=== PATIENT | male | born 1970 | race Caucasian/White ===

== ENCOUNTER 2021-01-25 16:02 | Inpatient (IN) | payer BC, SELFPAY ==
[2021-01-25] VITALS (10 sets, daily range): BP systolic 106–136; BP diastolic 62–88; PULSE 78–115; RESP 18–26; TEMP 37.1–38.1; O2SAT 89–98; BMI 14.3; BMI 42.0; BMI 41.1
--- NOTE | 2021-01-25 16:43 | XR_ITS ---
PROCEDURE INFORMATION: Exam: XR Chest Exam date and time: 01/25/2021 4:43 PM Age: 50 years old Clinical indication: Shortness of breath and other: Hypoxia; Patient HX: Non-smoker TECHNIQUE: Imaging protocol: XR of the chest. Views: 1 view. COMPARISON: No relevant prior studies available. FINDINGS: Lungs: Patchy bilateral airspace disease is primarily over the bases. Pleural spaces: Unremarkable. No pleural effusion. No pneumothorax. Heart/Mediastinum: Unremarkable. No cardiomegaly. Bones/joints: Unremarkable. IMPRESSION: Findings compatible with multifocal pneumonia
--- NOTE | 2021-01-25 16:44 | HMH.EDGENADL ---
ED Disposition Clinical Impression: Acute respiratory failure with hypoxia, COVID-19, Pneumonia due to COVID-19 virus Disposition: Admitted As Inpatient Condition on Discharge: Good Time of Disposition: 18:27 - Critical Care Critical Care Time: Yes Attestation: On 01/25/21, the high probability of a clinically significant, sudden or life threatening deterioration of the following system(s) required my full and direct attention, intervention and personal management. The time I documented below is in addition to time spent performing reported procedures but includes the following listed in this critical care notation. Total Critical Care Time: 35 Vital system(s) involved:: Respiratory Failure My critical care processes included: Assessment & monitoring of V/S, Initial and Re-exams, Data Review/Interpretation, Coordinating Care, Medication Orders and management, Documentation Medical Decision Making - Medical Records Medical records reviewed: Yes: I reviewed the patient's medical records. - Gilbert Inquiry Pt receiving controlled substance: No Vital Signs: 01/25/21 16:03 01/25/21 16:04 01/25/21 16:15 Temperature 100.3 F H Temperature Source Oral Pulse Rate [Left Radial] 112 H Respiratory Rate 18 Blood Pressure [Right Arm] 124/76 Blood Pressure Mean [Right Arm] 92 Blood Pressure Source [Right Arm] Automatic Cuff Blood Pressure Position [Right Arm] Sitting 02 Sat by Pulse Oximetry 89 L 90 L 96 Oxygen Delivery Method Room Air Nasal Cannula Vapotherm Oxygen Flow Rate (LPM) 6 - Lab Data Lab results reviewed: Yes: I reviewed the patient's lab results. Lab Results 01/25/21 16:48: Specimen Source Left radial, O2 % 6l nc, ABG pH 7.51 H, ABG pCO2 30.2 L, ABG pO2 62.0 L, ABG HCO3 23.5, ABG Total CO2 24.4, ABG O2 Saturation 93, ABG Base Excess 0.4, Raj Test Acceptable 01/25/21 17:00: WBC 8.2, RBC 5.97, Hgb 17.6, Hct 51.9, MCV 86.9, MCH 29.5, MCHC 34.0, RDW 14.1, Plt Count 218, MPV 9.1, Neut % (Auto) 79.4, Lymph % (Auto) 14.7, Stark % (Auto) 4.7, Eos % (Auto) 0.1, Baso % (Auto) 1.1, Neut # (Auto) 6.5, Lymph # (Auto) 1.2, Stark # (Auto) 0.4, Eos # (Auto) 0.0, Baso # (Auto) 0.1 01/25/21 17:00: Sodium 139, Potassium 4.7, Chloride 100, Carbon Dioxide 29, Anion Gap 14.7, BUN 23 H, Creatinine 1.20, Estimated Creat Clear 85, Estimated GFR 64, Est GFR ( Amer) 77, Glucose 140 H, Calcium 8.4, Total Bilirubin 0.8, AST 119 H, ALT 64, Alkaline Phosphatase 76, Troponin I 0.01, NT-Pro-B Natriuret Pep 49.4, Total Protein 8.0, Albumin 4.1, Globulin 3.9 H, Albumin/Globulin Ratio 1.1 01/25/21 17:40: SARS-CoV-2 (PCR) Detected A, Influenza A Untype (PCR) Not detected, Influenza Type B (PCR) Not detected Result diagrams: 01/25/21 17:00 01/25/21 17:00 Orders (Tests/Meds): ORDERS Category Date Time Status Lactic Acid Stat Lab 01/25/21 17:40 Received Troponin I Q3H Lab 01/25/21 19:45 Ordered Blood Culture Stat Micro 01/25/21 17:40 Received - Radiology Data #1 Image(s): Chest Image Reviewed: Yes I reviewed the patient's radiology results Preliminary Findings: Abnormal covid pna - ECG Data Tracing #1 I reviewed this ECG and interpreted as documented below: Sinus tachycardia with fusion complexes, 116 bpm, no ST elevation or depression, normal intervals. ECG initial impression date: 01/25/21 ECG initial impression time: 17:28 Medical Decision Narrative: 50yo M evaluated for acute respiratory failure. Patient's O2 saturations were in the low 80s upon arrival to the emergency department. He was started on supplemental O2 but only improved to the mid 80s. Patient was then started on Vapotherm at 100% FiO2 and his O2 sats are 97 to 98%. His work of breathing has returned to normal. He denies any symptoms right now other than his shortness of breath. He denies taking any daily medications or chronic health issues. Laboratory studies are largely unremarkable. Chest x-ray concerning for Covid pneumoni
--- NOTE | 2021-01-25 17:24 | ECG_ITS ---
APPROVED REPORT Exam: Resting ECG HR:116 bpm ECG Measurements Heart Rate 116 AXES IA 166 P 25 QRSd 92 QRS 67 QT 322 T -7 QTc 447 Conclusion Sinus tachycardia with fusion complexes T wave abnormality, consider inferior ischemia Abnormal ECG Electronically signed by : Pérez Montalvo MD 01/26/2021 10:53:23
[2021-01-25 17:34] LABS: ABG Base Excess 0.4 mmol/L (-2.4-2.3); ABG HCO3 23.5 mmhg (22.0-26.0); ABG Oxygen Saturation 93 % (90-100); ABG PCO2 30.2 mmhg (35.0-45.0); ABG PH 7.51 mmol/L (7.35-7.45); ABG TCO2 24.4 mmhg (23-27)
[2021-01-25 17:38] LABS: Allen's Test Acceptable; Oxygen 6L NC %; Source Left Radial
[2021-01-25 17:39] LABS: Chloride 100 mmol/L (98-107); Potassium 4.7 mmoL/L (3.5-5.1); Sodium 139 mmol/L (136-145)
[2021-01-25 17:41] LABS: Blood Urea Nitrogen 23 mg/dl (9-20); Creatinine Clearance Estimated 85 mL/min (50-200); Estimated Glomerular Filt Rate 64 ml/min (>60); GFR (African American) 77 ML/MIN (>60)
[2021-01-25 17:42] LABS: Alanine Aminotransferase 64 U/L (12-78); Albumin Level 4.1 g/dl (3.5-5.0); Albumin/Globulin Ratio 1.1 (1.1-1.8); Alkaline Phosphatase 76 U/L (38-126); Anion Gap 14.7 mEq/L (5-15); Aspartate Amino Transferase 119 U/L (17-59); Bilirubin,Total 0.8 mg/dl (0.2-1.3); Carbon Dioxide 29 mmol/L (22.0-30.0); Globulin 3.9 g/dL (1.3-3.2)
[2021-01-25 17:43] LABS: Calcium 8.4 mg/dl (8.4-10.2); Glucose 140 mg/dl (74-100)
[2021-01-25 17:44] LABS: Basophils # 0.1 K/mm3 (0-0.2); Basophils % 1.1 % (0.1-2.0); Eosinophils % 0.1 % (0.1-12.0); Hematocrit 51.9 % (42.0-52.0); Hemoglobin 17.6 g/dL (14.1-18.0); Lymphocytes # 1.2 K/mm3 (0.7-4.5); Lymphocytes % 14.7 % (10-50); Mean Corpuscular Hemoglobin 29.5 pg (27.0-31.2); Mean Corpuscular Volume 86.9 fl (80-94); Mean Platelet Volume 9.1 fl (7.4-10.4); Monocytes # 0.4 K/mm3 (0.1-1.0); Monocytes % 4.7 % (1.7-9.3); Neutrophils # 6.5 K/mm3 (1.8-7.8); Neutrophils % 79.4 % (37.0-80.0); Platelet Count 218 K/mm3 (142-424); Red Blood Count 5.97 M/mm3 (4.60-6.20); Red Cell Distribution Width 14.1 % (11.5-17.5); White Blood Count 8.2 K/mm3 (4.8-10.8)
[2021-01-25 17:51] LABS: NT Pro Brain Natriuretic Pep. 49.4 pg/mL (0-125)
[2021-01-25 17:57] LABS: Influenza A, PCR Not Detected (NotDetected); Influenza B, PCR Not Detected (NotDetected)
[2021-01-25 18:00] LABS: Troponin I 0.01 ng/ml (0.00-0.034)
--- NOTE | 2021-01-25 18:10 | PC.NURSE ---
Speaking with about admission
[2021-01-25 18:18] LABS: Coronavirus 19, PCR Detected (NotDetected)
[2021-01-25 18:21] LABS: Lactic Acid 1.7 mmol/L (0.7-2.1)
--- NOTE | 2021-01-25 18:36 | PC.NURSE ---
CALLED HOUSE FOR BED
[2021-01-25 19:17] LABS: Procalcitonin 0.175 ng/mL (0.0-2.0)
[2021-01-25 20:17] LABS: Troponin I 0.02 ng/ml (0.00-0.034)
[2021-01-26] VITALS (12 sets, daily range): BP systolic 112–149; BP diastolic 60–88; PULSE 76–94; RESP 19–21; TEMP 36.5–38.1; O2SAT 90–97
--- NOTE | 2021-01-26 04:49 | PC.NURSE ---
He is A&Ox4. He continues on vapotherm @ 40LPM 100%FiO2. He ambulated to the bathroom and tolerated well. Productive cough with white sputum; culture sent to lab. No acute changes since admission.
--- NOTE | 2021-01-26 05:30 | PC.NURSE ---
His bed is raised per his request.
[2021-01-26 05:59] LABS: Chloride 100 mmol/L (98-107)
[2021-01-26 06:00] LABS: Potassium 4.5 mmoL/L (3.5-5.1); Sodium 139 mmol/L (136-145)
[2021-01-26 06:02] LABS: Alanine Aminotransferase 57 U/L (12-78); Alkaline Phosphatase 74 U/L (38-126); Aspartate Amino Transferase 97 U/L (17-59); Basophils # 0.1 K/mm3 (0-0.2); Basophils % 0.6 % (0.1-2.0); Bilirubin,Total 0.6 mg/dl (0.2-1.3); Blood Urea Nitrogen 24 mg/dl (9-20); Creatinine Clearance Estimated 163 mL/min (50-200); Eosinophils % 0.1 % (0.1-12.0); Estimated Glomerular Filt Rate 71 ml/min (>60); GFR (African American) 85 ML/MIN (>60); Hematocrit 49.8 % (42.0-52.0); Hemoglobin 16.3 g/dL (14.1-18.0); Lymphocytes # 1.4 K/mm3 (0.7-4.5); Lymphocytes % 16.5 % (10-50); Mean Corpuscular HGB Conc 32.8 g/dL (31.8-35.4); Mean Corpuscular Hemoglobin 28.9 pg (27.0-31.2); Mean Corpuscular Volume 88.1 fl (80-94); Mean Platelet Volume 9.3 fl (7.4-10.4); Monocytes # 0.3 K/mm3 (0.1-1.0); Monocytes % 3.8 % (1.7-9.3); Neutrophils # 6.7 K/mm3 (1.8-7.8); Platelet Count 197 K/mm3 (142-424); Red Blood Count 5.65 M/mm3 (4.60-6.20); White Blood Count 8.4 K/mm3 (4.8-10.8)
[2021-01-26 06:03] LABS: Albumin Level 3.8 g/dl (3.5-5.0); Albumin/Globulin Ratio 1.1 (1.1-1.8); Anion Gap 13.5 mEq/L (5-15); Calcium 8.3 mg/dl (8.4-10.2); Carbon Dioxide 30 mmol/L (22.0-30.0); Globulin 3.4 g/dL (1.3-3.2); Glucose 120 mg/dl (74-100); Total Protein,Serum 7.2 g/dl (6.3-8.2)
--- NOTE | 2021-01-26 06:11 | HMH.HP ---
*Admission Date: 01/25/21 *Chief complaint: Shortness of breath *History of present illness: 50-year-old male presented to the emergency department with shortness of breath with cough and O2 sats in the 80s. Patient initially came down with URI symptoms on January 16. Patient was tested few days later through his employer and tested positive for COVID-19. Patient has been quarantining at home and was monitoring with home oximetry. Patient denies shortness of breath at rest but reports with coughing spells he became dyspneic. O2 sats began to drop into the 80s and reached as low as 80%. At this point patient decided to seek treatment in the ER. In the ER patient was hypoxic and responded to application of high flow nasal cannula which is currently maxed out at 40 L/min and 100% FiO2. Patient reports he feels comfortable this morning. He has not been vaccinated against COVID-19. [facility] History I have reviewed the patient's past medical history: Yes Medical History: Reports:: Cerebrovascular Accident Denies:: Cancer, Diabetes Mellitus Type 1, Diabetes Mellitus Type 2, MRSA *Have you ever received a pneumonia vaccine?: No *Have you received a flu vaccine this season?: No Laterality Cases: Left: Arthroscopy Knee Other Surgeries: Comment Only: Other (Right shoulder x2.) Amputation: No Fractures: No - *Social History Last grade of school completed: High school graduate Smoking Status: Former smoker Alcohol Intake: never Alcohol Intake Frequency:: holidays/special occasions only *Occupational Status:: employed *Travel in the last 8 weeks: None Family Hx:: Heart Attack, Hyperlipidemia, Hypertension, Stroke Review of Systems - Review of Systems Review of systems:: pertinent systems reviewed and negative unless documented below Meds Home Medications Medication Instructions Recorded Confirmed Type No Known Home Medications 01/25/21 01/25/21 History Allergies Allergy/AdvReac Type Severity Reaction Status Date / Time CODEINE Allergy Unknown NA-HALLUCIN Uncoded 04/11/17 15:20 ATIONS Exam Vital signs and Labs for Last 24 Hours: Temp Pulse Resp BP Pulse Ox 100.6 F H 91 H 26 H 149/88 H 97 01/25/21 21:39 01/26/21 04:00 01/25/21 21:39 01/26/21 04:00 01/26/21 04:56 Laboratory Results - last 24 hr 01/25/21 16:48: Specimen Source Left radial, O2 % 6l nc, ABG pH 7.51 H, ABG pCO2 30.2 L, ABG pO2 62.0 L, ABG HCO3 23.5, ABG Total CO2 24.4, ABG O2 Saturation 93, ABG Base Excess 0.4, Raj Test Acceptable 01/25/21 17:00: WBC 8.2, RBC 5.97, Hgb 17.6, Hct 51.9, MCV 86.9, MCH 29.5, MCHC 34.0, RDW 14.1, Plt Count 218, MPV 9.1, Neut % (Auto) 79.4, Lymph % (Auto) 14.7, Garrard % (Auto) 4.7, Eos % (Auto) 0.1, Baso % (Auto) 1.1, Neut # (Auto) 6.5, Lymph # (Auto) 1.2, Garrard # (Auto) 0.4, Eos # (Auto) 0.0, Baso # (Auto) 0.1 01/25/21 17:00: Sodium 139, Potassium 4.7, Chloride 100, Carbon Dioxide 29, Anion Gap 14.7, BUN 23 H, Creatinine 1.20, Estimated Creat Clear 85, Estimated GFR 64, Est GFR ( Amer) 77, Glucose 140 H, Calcium 8.4, Total Bilirubin 0.8, AST 119 H, ALT 64, Alkaline Phosphatase 76, Troponin I 0.01, NT-Pro-B Natriuret Pep 49.4, Total Protein 8.0, Albumin 4.1, Globulin 3.9 H, Albumin/Globulin Ratio 1.1 01/25/21 17:00: Procalcitonin 0.175 01/25/21 17:40: SARS-CoV-2 (PCR) Detected A, Influenza A Untype (PCR) Not detected, Influenza Type B (PCR) Not detected 01/25/21 17:40: Lactate 1.7 01/25/21 19:46: Troponin I 0.02 01/26/21 05:30: WBC 8.4, RBC 5.65, Hgb 16.3, Hct 49.8, MCV 88.1, MCH 28.9, MCHC 32.8, RDW 14.0, Plt Count 197, MPV 9.3, Neut % (Auto) 79.0, Lymph % (Auto) 16.5, Garrard % (Auto) 3.8, Eos % (Auto) 0.1, Baso % (Auto) 0.6, Neut # (Auto) 6.7, Lymph # (Auto) 1.4, Garrard # (Auto) 0.3, Eos # (Auto) 0.0, Baso # (Auto) 0.1 I & O for Last 24 hours: Intake & Output 01/23/21 01/24/21 01/25/21 01/26/21 11:59 11:59 11:59 11:59 Intake Total 280 / 280 Balance 280 / 280 Weight 319 lb 14.252 oz - Constituti
--- NOTE | 2021-01-26 08:07 | HMH.PHAVTE ---
[facility] Pharmacy VTE Monitoring - Patient Demographics Admission date: 01/26/21 Report Date: 01/26/21 Time: 08:07 Allergies/Adverse Reactions: Patient Allergies codeine Adverse Reaction (Verified 01/26/21 06:19) Hallucinating Height: 1.88 m Weight: 145.1 kg Patient Problems: Current Active Problems Acute respiratory failure with hypoxia (Acute) COVID-19 (Acute) Pneumonia due to COVID-19 virus (Acute) Viral pneumonia (Acute) - VTE Risk Labs: VTE Related Lab Results Hgb 16.3 g/dL (14.1-18.0) 01/26/21 05:30 Hct 49.8 % (42.0-52.0) 01/26/21 05:30 Plt Count 197 K/mm3 (142-424) 01/26/21 05:30 BUN 24 mg/dl (9-20) H 01/26/21 05:30 Creatinine 1.10 mg/dl (0.66-1.25) 01/26/21 05:30 Estimated Creat Clear 163 mL/min (50-200) 01/26/21 05:30 Was VTE Risk Assessment Performed: Yes VTE Score: 2 VTE Risk Level: Very Low Risk Clinical Trial Participant: No - Prophylaxis VTE Prophylaxis Ordered?: Yes Types of VTE Prophylaxis: TEDS Knee High, Pharmacological Pharmacologic Type: Enoxaparin
--- NOTE | 2021-01-26 08:43 | HMH.PHAINT ---
MEDICATION RECONCILIATION IS COMPLETE. PATIENT WAS ASKED AND DENIED TAKING ANY HOME MEDICATIONS
--- NOTE | 2021-01-26 08:57 | PC.NURSE ---
Educated pt on prone position, encouraged him to lie on his stomach intermittently throughout day. He did agree to do so.
--- NOTE | 2021-01-26 10:33 | PC.NURSE ---
Addendum entered by Mouna Graham RN 01/26/21 10:33: updated on plan of care via phone. Original Note: Pt lying in prone position @ this time
--- NOTE | 2021-01-26 11:20 | CT_ITS ---
PROCEDURE: CT ANGIO CHEST PE PROTOCOL CLINCIAL INDICATION: R/O PE Covid19 positive COMPARISON: No exams were available for comparison TECHNIQUE: IV Contrast: 70ML Isovue 370 Axial images obtained with sagittal and coronal reformats. All CT scans at the facility use one or more dose reduction, viz: automated exposure control, ma/kV adjustment per patient size (including targeted exams where dose is matched to indication, i.e. head), or iterative reconstruction technique. FINDINGS: HEART AND MEDIASTINAL STRUCTURES: The exam is limited secondary to patient motion artifact. This makes peripheral pulmonary artery evaluation extremely limited. There is no evidence thrombus within the main pulmonary artery or right and left main pulmonary arteries or proximal segmental arteries. On image number 50 series 3 there is a questionable filling defect within the medial basilar and posterior basilar segments of the right lower lobe pulmonary artery. This however is not conclusive. LUNGS AND PLEURAL SPACES: Multifocal bilateral ground-glass infiltrates consistent with Covid19 pneumonia with consolidation in the lung bases posteriorly. No effusions. There are low lung volumes BONY STRUCTURES: Mild thoracic scoliosis convex right and thoracolumbar scoliosis convex left. UPPER ABDOMEN: 7 mm hypodensity in the hepatic dome on the left nonspecific. ADDITIONAL FINDINGS: No other significant abnormalities. IMPRESSION: 1. No central pulmonary embolus evident. 2. Peripheral pulmonary arteries are not well evaluated secondary to motion artifact and low lung volumes. There is questionable thrombus within the posterior basilar and medial basilar segmental branch of the right lower lobe pulmonary artery. This however is not conclusive. 3. Multifocal bilateral infiltrates consistent with Covid19 pneumonia Dictated by: Raj Delgado MD 01/26/2021 13:01 Raj Delgado MD in [place] 01/26/2021 13:01
--- NOTE | 2021-01-26 11:56 | HMH.PULMCON ---
*Admission Date: 01/26/21 *Reason for consult:: Acute hypoxic respiratory failure, COVID-19 pneumonia *History of present illness: Mr. Hayward is a 50-year-old male no prior respiratory complaints last month 7 years ago around [id number] smoking history, denies any personal history of allergies or asthma, admits personal history of wheezing and family history of asthma presented to the hospital with worsening respiratory distress, he has been in quarantine after diagnosed with COVID-19 pneumonia however his symptoms are gradually worsening since then and and presented to the ER during which she was needing high flow nasal cannula oxygen supplementation and pulmonary was called for further management [facility] History Medical History: Reports:: Cerebrovascular Accident Denies:: Cancer, Diabetes Mellitus Type 1, Diabetes Mellitus Type 2, MRSA *Have you ever received a pneumonia vaccine?: No *Have you received a flu vaccine this season?: No Laterality Cases: Left: Arthroscopy Knee Other Surgeries: Comment Only: Other (Right shoulder x2.) Amputation: No Fractures: No - *Social History Last grade of school completed: High school graduate Smoking Status: Former smoker Alcohol Intake: never Alcohol Intake Frequency:: holidays/special occasions only *Occupational Status:: employed *Travel in the last 8 weeks: None Family Hx:: Heart Attack, Hyperlipidemia, Hypertension, Stroke ROS - Cons Reports anorexia, Reports body ache(s) - ENT Denies bleeding gums - Card Reports shortness of breath, Reports shortness of breath with activity - Resp Respiratory: Reports chest congestion, Reports cough, Reports dyspnea on exertion - GI Gastrointestingal: Reports: dyspepsia, vomiting - Musk Musculoskeletal: Denies decreased muscle mass - Psych Reports anxiety, Denies lack of enjoyment Meds Home Medications Medication Instructions Recorded Confirmed Type No Known Home Medications 01/25/21 01/26/21 History Allergies Allergy/AdvReac Type Severity Reaction Status Date / Time codeine AdvReac Hallucinati Verified 01/26/21 06:19 ng Exam - Constitutional Constitutional:: Present: comfortable - HENMT Exam HENMT: Present: normocephalic - Eye Exam Eyes:: Present: normal appearance both eyes and related structures - Neck Exam Neck:: Present: normal visual inspection - Respiratory Exam Respiratory:: Present: able to speak in complete sentences, respiratory distress, rales, wheezing - Cardiovascular Exam Cardiac:: Present: S1, S2 - GI Exam GI:: Present: soft, obese - Skin Exam Skin: Present: warm, no rash - Neurological Exam Neurological: Present: alert, awake, normal cognition - Extremities Exam Extremities: Present: no cyanosis, no clubbing, no edema Internal Medicine - CN: Reslt - Labs CBC & Chem 7: 01/26/21 05:30 01/26/21 05:30 Labs: Short CBC 01/25/21 01/26/21 Range/Units 17:00 05:30 WBC 8.2 8.4 (4.8-10.8) K/mm3 Hgb 17.6 16.3 (14.1-18.0) g/dL Hct 51.9 49.8 (42.0-52.0) % Plt Count 218 197 (142-424) K/mm3 BMP 01/25/21 01/26/21 17:00 05:30 Sodium 139 139 Potassium 4.7 4.5 Chloride 100 100 Carbon Dioxide 29 30 BUN 23 H 24 H Creatinine 1.20 1.10 Glucose 140 H 120 H Calcium 8.4 8.3 L Cardiac Enzymes 01/25/21 01/25/21 Range/Units 17:00 19:46 Troponin I 0.01 0.02 (0.00-0.034) ng/ml Liver Function 01/25/21 01/26/21 Range/Units 17:00 05:30 Total Bilirubin 0.8 0.6 (0.2-1.3) mg/dl AST 119 H 97 H (17-59) U/L ALT 64 57 (12-78) U/L Alkaline Phosphatase 76 74 (38-126) U/L Albumin 4.1 3.8 (3.5-5.0) g/dl - ABG Interpretation ABG results: 01/25/21 16:48 ABG pH 7.51 H ABG pCO2 30.2 L ABG pO2 62.0 L ABG HCO3 23.5 ABG Total CO2 24.4 ABG O2 Saturation 93 ABG Base Excess 0.4 Assessment and Plan (1) Viral pneumonia Status: Acute Category: Medical Code(s): J12.9 - Viral pneumo
--- NOTE | 2021-01-26 12:28 | PC.NURSE ---
Pt down for CTA today
--- NOTE | 2021-01-26 12:43 | PC.NURSE ---
Addendum entered by Mouna Graham RN 01/26/21 12:53: SPO2 84% on high flow nasal cannula, pt placed back on vapotherm (40L/100%). SPO2 currently 95%, pt resting on right side. Original Note: Pt placed on 15L via high flow cannula, cont pulse ox in place for monitoring.
[2021-01-26 12:46] LABS: C-Reactive Protein 45.5 mg/L (0-4)
[2021-01-26 14:46] LABS: Ferritin 1840 ng/ml (17.9-464)
--- NOTE | 2021-01-26 16:51 | PC.NURSE ---
No acute changes. Remains on 40/100 vapotherm, sat mid 90's. Lungs diminished throughout. Cough noted, pt will cough up thick yellow sputum occasionally. IS encouraged throughout shift, @ best = 750. HR regular. Abdomen soft, non-tender w/ active BS in all quads. No BM this shift. Ambulates independently. No safety concerns. Poor appetite noted. He is currently sitting up in bed talking on cell phone. Call servando w/in reach.
[2021-01-27] VITALS (12 sets, daily range): BP systolic 121–131; BP diastolic 64–73; PULSE 66–91; RESP 19–29; TEMP 36.4–37.1; O2SAT 88–98; BMI 41.0
--- NOTE | 2021-01-27 07:09 | HMH.ACPN2 ---
Internal Medicine - PN: Subj *Date: 01/27/21 *Time: 07:09 Interval history: Patient is without complaints this morning. No acute events over the last 24 hours. Nursing staff reports patient does well when he is laying on his right side with O2 sats in the mid 90s. Patient did try prone breathing but felt like he was tangled up in his high flow nasal cannula apparatus and it was uncomfortable. Exam Vital signs and Labs for Last 24 Hours: Temp Pulse Resp BP Pulse Ox 98.8 F 91 H 21 131/72 92 L 01/27/21 04:00 01/27/21 06:34 01/27/21 04:00 01/27/21 04:00 01/27/21 06:34 Laboratory Results - last 24 hr 01/26/21 12:00: D-Dimer 1.30 H 01/26/21 12:00: Ferritin 1840 H, C-Reactive Protein 45.5 H I & O for Last 24 hours: Intake & Output 01/24/21 01/25/21 01/26/21 01/27/21 11:59 11:59 11:59 11:59 Intake Total 760 / 760 860 / 860 Output Total 300 / 300 1100 / 1100 Balance 460 / 460 -240 / -240 Weight 319 lb 14.252 oz Microbiology Reports for the Last 24 Hours: Microbiology 01/26/21 02:00 Sputum - Expectorated Sputum Gram Stain - Final Narrative: He is comfortable with no increased work of breathing. Lungs have scattered rhonchi and rales with good aeration. Heart has a regular rate and rhythm. Abdomen is obese and soft. Extremities are warm to the touch and without edema Assessment and Plan (1) Viral pneumonia Status: Acute Category: Medical Code(s): J12.9 - Viral pneumonia, unspecified (2) Acute respiratory failure with hypoxia Status: Acute Category: Medical Code(s): J96.01 - Acute respiratory failure with hypoxia (3) COVID-19 Status: Acute Category: Medical Code(s): U07.1 - COVID-19 - Assessment and plan all Dx Assessment and Plan for all problems:: 1. Continue Remdesivir, dexamethasone, baricitinib, nutritional supplements along with doxycycline and Advair as ordered by Dr. Stewart. Very much appreciate Dr. Stewart's consultation and management 2. Wean high flow nasal cannula to keep O2 sats above 90%
--- NOTE | 2021-01-27 09:21 | HMH.PULMPN ---
Internal Medicine - PN: Subj *Date: 01/27/21 *Time: 14:36 Interval history: No acute respiratory vents overnight. Patient denies any new complaints. Exam - Constitutional Constitutional:: Present: no acute distress, comfortable - HENMT Exam HENMT: Present: normocephalic, atraumatic - Eye Exam Eyes:: Present: normal appearance both eyes and related structures - Neck Exam Neck:: Present: normal visual inspection - Respiratory Exam Respiratory:: Present: able to speak in complete sentences, respiratory distress, rales - Cardiovascular Exam Cardiac:: Present: S1, S2 - GI Exam GI:: Present: soft - Skin Exam Skin: Present: warm, no rash - Neurological Exam Neurological: Present: alert, awake, reflexes normal - Extremities Exam Extremities: Present: no cyanosis, no clubbing, no edema Assessment and Plan (1) Viral pneumonia Status: Acute Category: Medical Code(s): J12.9 - Viral pneumonia, unspecified (2) Acute respiratory failure with hypoxia Status: Acute Category: Medical Code(s): J96.01 - Acute respiratory failure with hypoxia (3) COVID-19 Status: Acute Category: Medical Code(s): U07.1 - COVID-19 - Assessment and plan all Dx Assessment and Plan for all problems:: #Acute hypoxic respiratory failure: #COVID-19 pneumonia: 50-year-old male prior smoker and [id number] smoking history, personal history of wheezing and family history of asthma diagnosed with COVID-19 pneumonia present with progressively worsening respiratory symptoms into needing high flow nasal cannula to maintain his saturations at desired level. Patient also admits personal history of provoked DVT previously Chest x-ray admission is bilateral lower lobe primary airspace disease/atelectasis. Afebrile. No evidence of leukocytosis. Interval update: Patient oxygen status appeared to be slightly worsened from yesterday. He denies any worsening respiratory distress. He only performed for couple of months. Encouraged to perform more frequently. CT performed, highly concerning for right lower lobe pulmonary embolus, eventually the patient on anticoagulation with Xarelto for at least 3 months. D-dimer also elevated 1.30 CRP at 45.5 and ferritin at 1840 Plan: -Xarelto 15 mg twice daily for 21 days and then 20 mg daily for at least 3 months -Continue awake proning protocol. -Advair 250 twice daily. -doxycyclinex 5 days -Continue remdesivir dexamethasone and barcitinib for his COVID-19 pneumonia. #Thank you for involving pulmonary in this patient care. We will continue to follow.
--- NOTE | 2021-01-27 18:18 | PC.NURSE ---
Remains on vapotherm. Settings were weaned to 40L/80%, when pt was prone his sat would be 97-98%. Once pt was sitting up in bed he would desat to mid-high 80's on 40L/80%, settings increased back to 40L/100%. Is @ best 750. Lungs diminished. HR regular. Abdomen soft, non-tender w/ active BS. No BM this shift. Urine is concentrated. Skin intact. Appetite remains poor, although he has ate almost all of his supper tonight. No complaints voiced. Pt's called this afternoon and was updated on plan of care. Call servando w/in reach.
[2021-01-28] VITALS (12 sets, daily range): BP systolic 116–131; BP diastolic 65–76; PULSE 68–93; RESP 18–24; TEMP 36.6–37.1; O2SAT 89–96
--- NOTE | 2021-01-28 05:52 | PC.NURSE ---
No acute events overnight. Pt on vapotherm, 40L, 100%. Lungs are diminished overall. Sats have remained in the 90s throughout the shift. Pt has been highly encouraged to prone as long as tolerated, sats remain >95% when prone. Pt appetite has been poor with little PO intake. UOP is concentrated. No BM. No c/o pain this shift. VS, call light in reach, no concerns at this time.
--- NOTE | 2021-01-28 07:02 | HMH.ACPN2 ---
Internal Medicine - PN: Subj *Date: 01/28/21 *Time: 07:02 Interval history: No acute events over the last 24 hours. Respiratory therapy reports when patient is supine O2 sats will drop down into the 80s despite max settings on high flow nasal cannula. When patient is on his side or prone O2 sats will rise to the mid 90s. Exam Vital signs and Labs for Last 24 Hours: Temp Pulse Resp BP Pulse Ox 98.7 F 74 18 128/65 91 L 01/28/21 04:00 01/28/21 05:40 01/28/21 04:00 01/28/21 04:00 01/28/21 05:40 I & O for Last 24 hours: Intake & Output 01/25/21 01/26/21 01/27/21 01/28/21 11:59 11:59 11:59 11:59 Intake Total 760 / 760 1100 / 1100 600 / 600 Output Total 300 / 300 1550 / 1550 550 / 550 Balance 460 / 460 -450 / -450 50 / 50 Weight 319 lb 14.252 oz 319 lb 10.724 oz Microbiology Reports for the Last 24 Hours: Microbiology 01/25/21 17:40 Blood Blood Culture - Preliminary NO GROWTH AFTER 48 HOURS 01/26/21 02:00 Sputum - Expectorated Sputum Gram Stain - Final 01/26/21 02:00 Sputum - Expectorated Sputum Sputum Culture - Preliminary 01/25/21 17:40 Blood Blood Culture - Preliminary - Constitutional no acute distress - *Routine Respiratory Exam Present: rales, rhonchi - *Routine Cardiovascular Exam Present: RRR - *Routine Abdominal Exam Present: soft, normoactive bowel sounds. Absent: tenderness Assessment and Plan (1) Viral pneumonia Status: Acute Category: Medical Code(s): J12.9 - Viral pneumonia, unspecified (2) Acute respiratory failure with hypoxia Status: Acute Category: Medical Code(s): J96.01 - Acute respiratory failure with hypoxia (3) COVID-19 Status: Acute Category: Medical Code(s): U07.1 - COVID-19 - Assessment and plan all Dx Assessment and Plan for all problems:: 1. Continue Remdesivir, dexamethasone, baricitinib for viral pneumonia from COVID-19 infection 2. Encourage more prone positioning
[2021-01-28 08:44] LABS: Chloride 107 mmol/L (98-107); Potassium 4.1 mmoL/L (3.5-5.1); Sodium 142 mmol/L (136-145)
[2021-01-28 08:47] LABS: Alanine Aminotransferase 49 U/L (12-78); Albumin Level 3.5 g/dl (3.5-5.0); Albumin/Globulin Ratio 1.1 (1.1-1.8); Alkaline Phosphatase 76 U/L (38-126); Anion Gap 11.1 mEq/L (5-15); Aspartate Amino Transferase 56 U/L (17-59); Bilirubin,Total 0.7 mg/dl (0.2-1.3); Blood Urea Nitrogen 15 mg/dl (9-20); Carbon Dioxide 28 mmol/L (22.0-30.0); Creatinine Clearance Estimated 256 mL/min (50-200); Estimated Glomerular Filt Rate 119 ml/min (>60); GFR (African American) 144 ML/MIN (>60); Globulin 3.3 g/dL (1.3-3.2); Total Protein,Serum 6.8 g/dl (6.3-8.2)
[2021-01-28 08:48] LABS: Calcium 8.7 mg/dl (8.4-10.2); Glucose 119 mg/dl (74-100)
--- NOTE | 2021-01-28 09:00 | HMH.PULMPN ---
Internal Medicine - PN: Subj *Date: 01/28/21 *Time: 13:12 Interval history: No acute respiratory events overnight. Admits slight improvement in his symptoms. Exam - Constitutional Constitutional:: Present: no acute distress, comfortable - HENMT Exam HENMT: Present: normocephalic - Eye Exam Eyes:: Present: normal appearance both eyes and related structures - Neck Exam Neck:: Present: normal visual inspection - Respiratory Exam Respiratory:: Present: able to speak in complete sentences, respiratory distress, rales - Cardiovascular Exam Cardiac:: Present: S1, S2 - GI Exam GI:: Present: soft, obese - Skin Exam Skin: Present: warm, no rash - Neurological Exam Neurological: Present: alert, awake, normal cognition - Extremities Exam Extremities: Present: no cyanosis, no clubbing, no edema Assessment and Plan (1) Viral pneumonia Status: Acute Category: Medical Code(s): J12.9 - Viral pneumonia, unspecified (2) Acute respiratory failure with hypoxia Status: Acute Category: Medical Code(s): J96.01 - Acute respiratory failure with hypoxia (3) COVID-19 Status: Acute Category: Medical Code(s): U07.1 - COVID-19 - Assessment and plan all Dx Assessment and Plan for all problems:: #Acute hypoxic respiratory failure: #COVID-19 pneumonia: 50-year-old male prior smoker and [id number] smoking history, personal history of wheezing and family history of asthma diagnosed with COVID-19 pneumonia present with progressively worsening respiratory symptoms into needing high flow nasal cannula to maintain his saturations at desired level. Patient also admits personal history of provoked DVT previously Chest x-ray admission is bilateral lower lobe primary airspace disease/atelectasis. Afebrile. No evidence of leukocytosis. D-dimer also elevated 1.30 CRP at 45.5 and ferritin at 1840 Interval update: Patient admits slight improvement in his respiratory symptoms. Oxygenation improved, weaned to 80% this morning. We will continue to wean as tolerated. He was encouraged to continue proning protocol. Plan: -Continue high flow nasal cannula oxygen supplementation, wean as tolerated -Xarelto 15 mg twice daily for 21 days and then 20 mg daily for at least 3 months -Continue awake proning protocol. -Advair 250 twice daily. -doxycyclinex 5 days -Continue remdesivir dexamethasone and barcitinib for his COVID-19 pneumonia. #Thank you for involving pulmonary in this patient care. We will continue to follow.
--- NOTE | 2021-01-28 20:54 | PC.NURSE ---
He is A&Ox4. He denies pain. He reports his last BM was today. Intermittent cough present with clear, thin sputum. He continues on vapotherm at 40LPM 80% FiO2. He has agreed to sit on the side of the bed in about a hour and give himself a bath then on chair while linens are changed. Plan to increase FiO2 to 100% during this process. He is afebrile at this time. Voiding per urinal. Urine is cris, clear. He reports a poor appetite. His supper was untouched except for the fruit. RLE more edematous then left.
--- NOTE | 2021-01-28 22:09 | PC.NURSE ---
He sat on the side of the bed and gave himself a bath; however, his water was clear after his bath and his towels were untouched along with his soap and deodorant appeared to be unmoved. His FiO2 was increased to 100% while he was bathing and it was requested that he did not remove his oxygen. During his bath, he removed his oxygen and ambulated to the bathroom and had a BM. FiO2 left at 100% to allow him to rebound. He was educated to use his call light to get help with his tubing if he needs to use the bathroom again. He verbalizes understanding.
--- NOTE | 2021-01-28 22:41 | PC.NURSE ---
FiO2 decreased to 80% at this time.
[2021-01-29] VITALS (10 sets, daily range): BP systolic 106–137; BP diastolic 56–78; PULSE 88–117; RESP 18–24; TEMP 36.9–38.4; O2SAT 89–100; BMI 40.8
--- NOTE | 2021-01-29 04:16 | PC.NURSE ---
PRN acetaminophen given for temp 101.1
[2021-01-29 05:46] LABS: Alanine Aminotransferase 72 U/L (12-78); Albumin Level 3.4 g/dl (3.5-5.0); Albumin/Globulin Ratio 1.1 (1.1-1.8); Alkaline Phosphatase 66 U/L (38-126); Aspartate Amino Transferase 85 U/L (17-59); Bilirubin,Total 0.7 mg/dl (0.2-1.3); Blood Urea Nitrogen 13 mg/dl (9-20); Calcium 8.4 mg/dl (8.4-10.2); Carbon Dioxide 28 mmol/L (22.0-30.0); Chloride 108 mmol/L (98-107); Creatinine Clearance Estimated 223 mL/min (50-200); Estimated Glomerular Filt Rate 102 ml/min (>60); GFR (African American) 123 ML/MIN (>60); Globulin 3.1 g/dL (1.3-3.2); Glucose 105 mg/dl (74-100); Sodium 141 mmol/L (136-145); Total Protein,Serum 6.5 g/dl (6.3-8.2)
--- NOTE | 2021-01-29 06:49 | HMH.ACPN2 ---
Internal Medicine - PN: Subj *Date: 01/29/21 *Time: 06:49 Interval history: Patient reports feeling better. He has had fever to 101 this morning. O2 sats remained in the high 80s and low 90s on HFNC at 40 L/min with FiO2 of 80%. Nursing staff reports patient is not as compliant with prone positioning as desirable Exam Vital signs and Labs for Last 24 Hours: Temp Pulse Resp BP Pulse Ox 101.1 F H 104 H 21 106/56 L 92 L 01/29/21 04:00 01/29/21 05:10 01/29/21 04:00 01/29/21 04:00 01/29/21 05:10 Laboratory Results - last 24 hr 01/28/21 08:20: Sodium 142, Potassium 4.1, Chloride 107, Carbon Dioxide 28, Anion Gap 11.1, BUN 15 D, Creatinine 0.70 D, Estimated Creat Clear 256, Estimated GFR 119, Est GFR ( Amer) 144 D, Glucose 119 H, Calcium 8.7, Total Bilirubin 0.7, AST 56 D, ALT 49, Alkaline Phosphatase 76, Total Protein 6.8, Albumin 3.5, Globulin 3.3 H, Albumin/Globulin Ratio 1.1 01/29/21 05:00: Sodium 141, Potassium 4.0, Chloride 108 H, Carbon Dioxide 28, Anion Gap 9.0, BUN 13, Creatinine 0.80, Estimated Creat Clear 223, Estimated GFR 102, Est GFR ( Amer) 123, Glucose 105 H, Calcium 8.4, Total Bilirubin 0.7, AST 85 H D, ALT 72 D, Alkaline Phosphatase 66, Total Protein 6.5, Albumin 3.4 L, Globulin 3.1, Albumin/Globulin Ratio 1.1 I & O for Last 24 hours: Intake & Output 01/26/21 01/27/21 01/28/21 01/29/21 11:59 11:59 11:59 11:59 Intake Total 760 / 760 1100 / 1100 1080 / 1080 1360 / 1360 Output Total 300 / 300 1550 / 1550 550 / 550 640 / 640 Balance 460 / 460 -450 / -450 530 / 530 720 / 720 Weight 319 lb 14.252 oz 319 lb 10.724 oz 318 lb 9.087 oz Microbiology Reports for the Last 24 Hours: Microbiology 01/25/21 17:40 Blood Blood Culture - Preliminary Gram Positive Cocci 01/26/21 02:00 Sputum - Expectorated Sputum Gram Stain - Final 01/26/21 02:00 Sputum - Expectorated Sputum Sputum Culture - Preliminary Narrative: Patient is laying on his left side in the bed. No increased work of breathing or respiratory distress. Lungs have distant breath sounds with posterior rales. Heart is slightly tachycardic this morning. Lower extremities have no edema. Abdomen is soft. Assessment and Plan (1) Viral pneumonia Status: Acute Category: Medical Code(s): J12.9 - Viral pneumonia, unspecified (2) Acute respiratory failure with hypoxia Status: Acute Category: Medical Code(s): J96.01 - Acute respiratory failure with hypoxia (3) COVID-19 Status: Acute Category: Medical Code(s): U07.1 - COVID-19 - Assessment and plan all Dx Assessment and Plan for all problems:: 1. Continue Remdesivir, baricitinib, dexamethasone, doxycycline, Advair 2. Emphasized the importance of prone positioning to the patient.
--- NOTE | 2021-01-29 07:58 | HMH.ACPN ---
Internal Medicine - PN: Subj *Date: 01/29/21 *Time: 07:58 Exam Vital signs and Labs for Last 24 Hours: Temp Pulse Resp BP Pulse Ox 101.1 F H 104 H 21 106/56 L 92 L 01/29/21 04:00 01/29/21 05:10 01/29/21 04:00 01/29/21 04:00 01/29/21 05:10 Laboratory Results - last 24 hr 01/28/21 08:20: Sodium 142, Potassium 4.1, Chloride 107, Carbon Dioxide 28, Anion Gap 11.1, BUN 15 D, Creatinine 0.70 D, Estimated Creat Clear 256, Estimated GFR 119, Est GFR ( Amer) 144 D, Glucose 119 H, Calcium 8.7, Total Bilirubin 0.7, AST 56 D, ALT 49, Alkaline Phosphatase 76, Total Protein 6.8, Albumin 3.5, Globulin 3.3 H, Albumin/Globulin Ratio 1.1 01/29/21 05:00: Sodium 141, Potassium 4.0, Chloride 108 H, Carbon Dioxide 28, Anion Gap 9.0, BUN 13, Creatinine 0.80, Estimated Creat Clear 223, Estimated GFR 102, Est GFR ( Amer) 123, Glucose 105 H, Calcium 8.4, Total Bilirubin 0.7, AST 85 H D, ALT 72 D, Alkaline Phosphatase 66, Total Protein 6.5, Albumin 3.4 L, Globulin 3.1, Albumin/Globulin Ratio 1.1 I & O for Last 24 hours: Intake & Output 01/26/21 01/27/21 01/28/21 01/29/21 23:59 23:59 23:59 23:59 Intake Total 1620 / 1620 840 / 840 1450 / 1450 390 / 390 Output Total 800 / 1400 1300 / 1600 940 / 940 Balance 820 / 220 -460 / -760 510 / 510 390 / 390 Weight 145 kg 144.5 kg Microbiology Reports for the Last 24 Hours: Microbiology 01/25/21 17:40 Blood Blood Culture - Preliminary Aerococcus viridans 01/26/21 02:00 Sputum - Expectorated Sputum Gram Stain - Final 01/26/21 02:00 Sputum - Expectorated Sputum Sputum Culture - Final Normal Respiratory Carmen Assessment and Plan (1) Viral pneumonia Status: Acute Category: Medical Code(s): J12.9 - Viral pneumonia, unspecified (2) Acute respiratory failure with hypoxia Status: Acute Category: Medical Code(s): J96.01 - Acute respiratory failure with hypoxia (3) COVID-19 Status: Acute Category: Medical Code(s): U07.1 - COVID-19 The patient's infection will respond to the chosen ABx?: Yes Is the patient receiving the right drug, dose, and route?: Yes Could a more targeted ABx be ordered?: No
[2021-01-29 08:12] LABS: Basophils # 0.1 K/mm3 (0-0.2); Basophils % 0.5 % (0.1-2.0); Eosinophils % 0.2 % (0.1-12.0); Hematocrit 47.8 % (42.0-52.0); Hemoglobin 15.4 g/dL (14.1-18.0); Lymphocytes # 1.2 K/mm3 (0.7-4.5); Lymphocytes % 9.9 % (10-50); Mean Corpuscular HGB Conc 32.2 g/dL (31.8-35.4); Mean Corpuscular Hemoglobin 29.2 pg (27.0-31.2); Mean Corpuscular Volume 90.6 fl (80-94); Mean Platelet Volume 8.7 fl (7.4-10.4); Monocytes # 0.4 K/mm3 (0.1-1.0); Monocytes % 3.3 % (1.7-9.3); Neutrophils # 10.3 K/mm3 (1.8-7.8); Neutrophils % 86.1 % (37.0-80.0); Platelet Count 336 K/mm3 (142-424); Red Blood Count 5.28 M/mm3 (4.60-6.20); Red Cell Distribution Width 14.8 % (11.5-17.5); White Blood Count 11.9 K/mm3 (4.8-10.8)
[2021-01-29 08:18] LABS: MANUAL DIFFERENTIAL MANUAL DIFFERENTIAL (MANUAL DIFF)
[2021-01-29 08:48] LABS: Lymphocytes % 7 % (10-50); Monocytes % 5 % (2-9); Neutrophils % 88 % (42-76); Nucleated Red Blood Cells 1; Total Cells Counted 100
[2021-01-29 08:49] LABS: Platelet Estimate Normal
--- NOTE | 2021-01-29 15:42 | HMH.PULMPN ---
Internal Medicine - PN: Subj *Date: 01/29/21 *Time: 16:42 Interval history: Patient denies any new respiratory complaints. He admits stable with no worsening or improving symptoms since yesterday. Exam - Constitutional Constitutional:: Present: no acute distress, comfortable - HENMT Exam HENMT: Present: normocephalic - Eye Exam Eyes:: Present: normal appearance both eyes and related structures - Neck Exam Neck:: Present: normal visual inspection - Respiratory Exam Respiratory:: Present: respiratory distress, decreased breath sounds, rales - Cardiovascular Exam Cardiac:: Present: S1, S2 - GI Exam GI:: Present: soft, obese - Skin Exam Skin: Present: warm - Neurological Exam Neurological: Present: alert, awake, normal cognition - Extremities Exam Extremities: Present: no cyanosis, no clubbing Assessment and Plan (1) Viral pneumonia Status: Acute Category: Medical Code(s): J12.9 - Viral pneumonia, unspecified (2) Acute respiratory failure with hypoxia Status: Acute Category: Medical Code(s): J96.01 - Acute respiratory failure with hypoxia (3) COVID-19 Status: Acute Category: Medical Code(s): U07.1 - COVID-19 - Assessment and plan all Dx Assessment and Plan for all problems:: #Acute hypoxic respiratory failure: #COVID-19 pneumonia: 50-year-old male prior smoker and 60-foza-poco smoking history, personal history of wheezing and family history of asthma diagnosed with COVID-19 pneumonia present with progressively worsening respiratory symptoms into needing high flow nasal cannula to maintain his saturations at desired level. Patient also admits personal history of provoked DVT previously Chest x-ray admission is bilateral lower lobe primary airspace disease/atelectasis. Afebrile. No evidence of leukocytosis. D-dimer also elevated 1.30 CRP at 45.5 and ferritin at 1840 Interval update: Mild leukocytosis at 11.9. Neutrophilic predominant. Will monitor. Renal function stable. Patient admits stable no worsening or improving symptoms since yesterday. His O2 requirements increased to 100%, transfer to floor from ICU. Patient is again counseled encouraged to follow awake proning protocol as recommended for at least Monday Plan: -Continuous telemetry monitoring -Continue high flow nasal cannula oxygen supplementation, wean as tolerated -Xarelto 15 mg twice daily for 21 days and then 20 mg daily for at least 3 months -Continue awake proning protocol. -Advair 250 twice daily. -COntinue Doxycyclinex 5 days -Continue remdesivir dexamethasone and barcitinib for his COVID-19 pneumonia. #Thank you for involving pulmonary in this patient care. We will continue to follow.
--- NOTE | 2021-01-29 17:02 | PC.NURSE ---
RESPIRATORY CARE NOTE: RT ENTERED ROOM TO FIND PT LAYING FLAT IN THE BED, ON HIS BACK. IT WAS EXPLAINED THAT PT IS MAXED OUT ON VAPOTHERM-- RT ENCOURAGED PT TO PRONE, OR ROTATE SIDE TO SIDE TO IMPROVE OXYGEN SATS. PT ROTATES TO RIGHT SIDE BEFORE RT LEFT ROOM.
--- NOTE | 2021-01-29 18:19 | PC.NURSE ---
1814-PT PULSE OX READ 69%. THIS RN ENTERED ROOM TO FIND PT HAS REMOVED VAPOTHERM AND WALKED SELF TO BATHROOM. CALL LIGHT WAS WITHIN REACH AND OPERABLE. PT WAS EDUCATED ON NEED TO USE CALL LIGHT. SHIFT SUMMARY. PT IS AOX4, ABLE TO MAKE NEEDS KNOWN TO STAFF, REMAINS ON VAPOTHERM 40LPM 100%FIO2. PT BECOMES VISIBLY DYSPNEIC WITH EXERTION. OTHERWISE VSS.
[2021-01-30] VITALS (9 sets, daily range): BP systolic 116–149; BP diastolic 60–88; PULSE 70–100; RESP 14–21; TEMP 36.7–37.2; O2SAT 88–93; BMI 40.8
--- NOTE | 2021-01-30 03:12 | PC.NURSE ---
No acute changes t/o shift. Pt remains on Vapotherm 40L and 90% with stats >90%. Pt has been laying prone most of the night night independently. Pt has been using urinal independently, urine has been clear and yellow. Pt denies any pain. Call light within reach, VSS, will continue to monitor.
--- NOTE | 2021-01-30 07:18 | HMH.ACPN2 ---
Internal Medicine - PN: Subj *Date: 01/30/21 *Time: 07:18 Interval history: Patient is remained stable. He did require slight increase in FiO2 from 80% to 90% when O2 sats dropped below 90% yesterday evening. He reports feeling well Exam Vital signs and Labs for Last 24 Hours: Temp Pulse Resp BP Pulse Ox 98.1 F 75 21 135/79 93 L 01/30/21 04:00 01/30/21 04:00 01/30/21 04:00 01/30/21 04:00 01/30/21 04:00 Laboratory Results - last 24 hr 01/29/21 07:54: WBC 11.9 H, RBC 5.28, Hgb 15.4, Hct 47.8, MCV 90.6, MCH 29.2, MCHC 32.2, RDW 14.8, Plt Count 336 D, MPV 8.7, Neut % (Auto) 86.1 H, Lymph % (Auto) 9.9 L, Calloway % (Auto) 3.3, Eos % (Auto) 0.2, Baso % (Auto) 0.5, Neut # (Auto) 10.3 H, Lymph # (Auto) 1.2, Calloway # (Auto) 0.4, Eos # (Auto) 0.0, Baso # (Auto) 0.1, Total Counted 100, Neutrophils % (Manual) 88 H, Lymphocytes % (Manual) 7 L, Monocytes % (Manual) 5, Nucleated RBCs 1, Platelet Estimate Normal I & O for Last 24 hours: Intake & Output 01/27/21 01/28/21 01/29/21 01/30/21 11:59 11:59 11:59 11:59 Intake Total 1100 / 1100 1080 / 1080 1360 / 1360 590 / 590 Output Total 1550 / 1550 550 / 550 640 / 640 Balance -450 / -450 530 / 530 720 / 720 590 / 590 Weight 319 lb 10.724 oz 318 lb 9.087 oz 318 lb 9.087 oz Microbiology Reports for the Last 24 Hours: Microbiology 01/25/21 17:40 Blood Blood Culture - Preliminary Aerococcus viridans 01/26/21 02:00 Sputum - Expectorated Sputum Gram Stain - Final 01/26/21 02:00 Sputum - Expectorated Sputum Sputum Culture - Final Normal Respiratory Carmen Narrative: Patient looks comfortable lying in bed. Lungs have scattered rales and rhonchi. Heart has a regular rate and rhythm. Abdomen is obese and soft. Lower extremities have no edema Assessment and Plan (1) Viral pneumonia Status: Acute Category: Medical Code(s): J12.9 - Viral pneumonia, unspecified (2) Acute respiratory failure with hypoxia Status: Acute Category: Medical Code(s): J96.01 - Acute respiratory failure with hypoxia (3) COVID-19 Status: Acute Category: Medical Code(s): U07.1 - COVID-19 - Assessment and plan all Dx Assessment and Plan for all problems:: No change in patient's plan of care. Goal is to wean oxygen to maintain O2 sats greater than 90% to transition to simple nasal cannula.
[2021-01-30 07:25] LABS: Chloride 107 mmol/L (98-107)
[2021-01-30 07:26] LABS: Potassium 4.3 mmoL/L (3.5-5.1); Sodium 143 mmol/L (136-145)
[2021-01-30 07:28] LABS: Alanine Aminotransferase 78 U/L (12-78); Albumin Level 3.5 g/dl (3.5-5.0); Alkaline Phosphatase 69 U/L (38-126); Anion Gap 12.3 mEq/L (5-15); Aspartate Amino Transferase 69 U/L (17-59); Bilirubin,Total 0.7 mg/dl (0.2-1.3); Blood Urea Nitrogen 13 mg/dl (9-20); Carbon Dioxide 28 mmol/L (22.0-30.0); Creatinine Clearance Estimated 255 mL/min (50-200); Estimated Glomerular Filt Rate 119 ml/min (>60); GFR (African American) 144 ML/MIN (>60); Globulin 3.5 g/dL (1.3-3.2)
[2021-01-30 07:29] LABS: Calcium 8.9 mg/dl (8.4-10.2); Glucose 110 mg/dl (74-100)
[2021-01-31] VITALS (11 sets, daily range): BP systolic 116–145; BP diastolic 57–82; PULSE 71–88; RESP 17–22; TEMP 36.5–37.1; O2SAT 89–94; BMI 40.8
--- NOTE | 2021-01-31 00:52 | PC.NURSE ---
This RN went in to infuse 01:00 antibiotic, IV will not flush. Was told in report this IV was ultra sound guided days ago. Informed patient that this IV needs to be removed and we need to start a new one in order to infuse his antibiotics. Pt refused IV at this time. Called warehouse attendant to inform pt's decision. Removed IV in patient's right FA.
--- NOTE | 2021-01-31 03:15 | PC.NURSE ---
No acute changes t/o night. Pt remains on Vapotherm 40L and 80% stats will range from 88%-90%. Pt will only destat when using the urinal or making position changes in bed. Pt has remained prone for majority of the shift. Pt remains with no IV access. Pt denies any pain. VSS, call light within reach, will continue to monitor.
[2021-01-31 07:33] LABS: Chloride 106 mmol/L (98-107); Potassium 4.4 mmoL/L (3.5-5.1); Sodium 141 mmol/L (136-145)
[2021-01-31 07:35] LABS: Alanine Aminotransferase 69 U/L (12-78); Alkaline Phosphatase 69 U/L (38-126); Aspartate Amino Transferase 51 U/L (17-59); Bilirubin,Total 0.6 mg/dl (0.2-1.3); Blood Urea Nitrogen 13 mg/dl (9-20); Creatinine Clearance Estimated 298 mL/min (50-200); Estimated Glomerular Filt Rate 142 ml/min (>60); GFR (African American) 172 ML/MIN (>60)
[2021-01-31 07:36] LABS: Albumin Level 3.5 g/dl (3.5-5.0); Anion Gap 13.4 mEq/L (5-15); Carbon Dioxide 26 mmol/L (22.0-30.0); Globulin 3.4 g/dL (1.3-3.2); Glucose 116 mg/dl (74-100); Total Protein,Serum 6.9 g/dl (6.3-8.2)
--- NOTE | 2021-01-31 07:40 | HMH.ACPN2 ---
Internal Medicine - PN: Subj *Date: 01/31/21 *Time: 07:40 Interval history: Patient is without complaints this morning. He continues to express a desire to return home. He is reminded that he is requiring significant levels of oxygen support. IV was lost overnight and he is agreeable to at least one more attempt under ultrasound guidance to reestablish IV. Exam Vital signs and Labs for Last 24 Hours: Temp Pulse Resp BP Pulse Ox 97.7 F 80 20 138/80 92 L 01/31/21 04:00 01/31/21 06:20 01/31/21 04:00 01/31/21 04:00 01/31/21 06:20 Laboratory Results - last 24 hr 01/31/21 06:30: Sodium 141, Potassium 4.4, Chloride 106, Carbon Dioxide 26, Anion Gap 13.4, BUN 13, Creatinine 0.60 L, Estimated Creat Clear 298, Estimated GFR 142, Est GFR ( Amer) 172, Glucose 116 H, Calcium 9.0, Total Bilirubin 0.6, AST 51 D, ALT 69, Alkaline Phosphatase 69, Total Protein 6.9, Albumin 3.5, Globulin 3.4 H, Albumin/Globulin Ratio 1.0 L I & O for Last 24 hours: Intake & Output 01/28/21 01/29/21 01/30/21 01/31/21 11:59 11:59 11:59 11:59 Intake Total 1080 / 1080 1360 / 1360 710 / 710 240 / 240 Output Total 550 / 550 640 / 640 120 / 120 500 / 500 Balance 530 / 530 720 / 720 590 / 590 -260 / -260 Weight 318 lb 9.087 oz 318 lb 9.087 oz 318 lb 9.087 oz Microbiology Reports for the Last 24 Hours: Microbiology 01/25/21 17:40 Blood Blood Culture - Final Staphylococcus hominis 01/25/21 17:40 Blood Blood Culture - Final NO GROWTH AFTER 5 DAYS Narrative: Patient looks comfortable. Lungs have a few more noticeable rales this morning anteriorly. Heart has a regular rate and rhythm. Abdomen is soft. Assessment and Plan (1) Viral pneumonia Status: Acute Category: Medical Code(s): J12.9 - Viral pneumonia, unspecified (2) Acute respiratory failure with hypoxia Status: Acute Category: Medical Code(s): J96.01 - Acute respiratory failure with hypoxia (3) COVID-19 Status: Acute Category: Medical Code(s): U07.1 - COVID-19 (4) Pulmonary embolism Status: Suspected Qualifiers: Pulmonary embolism type: other Chronicity: acute Acute cor pulmonale presence: without acute cor pulmonale Qualified Code(s): I26.99 - Other pulmonary embolism without acute cor pulmonale Category: Medical Code(s): I26.99 - Other pulmonary embolism without acute cor pulmonale - Assessment and plan all Dx Assessment and Plan for all problems:: 1. If IV can be reestablished patient will continue Remdesivir. If not medicine will be discontinued 2. Continue dexamethasone, baricitinib, Advair, incentive spirometry. 3. Continue Xarelto for suspected PE
--- NOTE | 2021-01-31 19:39 | PC.NURSE ---
NO ACUTE CHANGES THIS SHIFT. VITAL SIGNS HAVE BEEN STABLE. CONTINUE ON VAPOTHERM FOR O2 SUPPORT.
[2021-02-01] VITALS (11 sets, daily range): BP systolic 111–144; BP diastolic 61–97; PULSE 71–101; RESP 18–20; TEMP 36.5–37; O2SAT 88–94; BMI 40.5
--- NOTE | 2021-02-01 03:24 | PC.NURSE ---
No acute changes t/o shift. Pt remains on Vapotherm 40L and 80% with O2 saturation 89-91%. Pt denies any pain t/o shift. IV is patent and SL. VSS, call light within reach, will continue to monitor.
--- NOTE | 2021-02-01 06:48 | HMH.ACPN2 ---
Internal Medicine - PN: Subj *Date: 02/01/21 *Time: 06:48 Interval history: Patient reports feeling well. Over the last 24 hours there has been no change in his oxygen requirements. Exam Vital signs and Labs for Last 24 Hours: Temp Pulse Resp BP Pulse Ox 97.9 F 74 18 122/69 93 L 02/01/21 04:00 02/01/21 06:34 02/01/21 04:00 02/01/21 04:00 02/01/21 06:34 Laboratory Results - last 24 hr 01/31/21 06:30: Sodium 141, Potassium 4.4, Chloride 106, Carbon Dioxide 26, Anion Gap 13.4, BUN 13, Creatinine 0.60 L, Estimated Creat Clear 298, Estimated GFR 142, Est GFR ( Amer) 172, Glucose 116 H, Calcium 9.0, Total Bilirubin 0.6, AST 51 D, ALT 69, Alkaline Phosphatase 69, Total Protein 6.9, Albumin 3.5, Globulin 3.4 H, Albumin/Globulin Ratio 1.0 L I & O for Last 24 hours: Intake & Output 01/29/21 01/30/21 01/31/21 02/01/21 11:59 11:59 11:59 11:59 Intake Total 1360 / 1360 710 / 710 240 / 240 Output Total 640 / 640 120 / 120 500 / 500 1500 / 1500 Balance 720 / 720 590 / 590 -260 / -260 -1500 / -1500 Weight 318 lb 9.087 oz 318 lb 9.087 oz 318 lb 9.087 oz 316 lb Microbiology Reports for the Last 24 Hours: Microbiology 01/25/21 17:40 Blood Blood Culture - Final Staphylococcus hominis Narrative: Patient looks comfortable. Breath sounds are distant. There are faint rales. Heart has a regular rate and rhythm. Abdomen is soft and obese. Assessment and Plan (1) Viral pneumonia Status: Acute Category: Medical Code(s): J12.9 - Viral pneumonia, unspecified (2) Acute respiratory failure with hypoxia Status: Acute Category: Medical Code(s): J96.01 - Acute respiratory failure with hypoxia (3) COVID-19 Status: Acute Category: Medical Code(s): U07.1 - COVID-19 (4) Pulmonary embolism Status: Suspected Qualifiers: Pulmonary embolism type: other Chronicity: acute Acute cor pulmonale presence: without acute cor pulmonale Qualified Code(s): I26.99 - Other pulmonary embolism without acute cor pulmonale Category: Medical Code(s): I26.99 - Other pulmonary embolism without acute cor pulmonale - Assessment and plan all Dx Assessment and Plan for all problems:: 1. Continue Remdesivir, dexamethasone, baricitinib 2. Patient will complete his course of doxycycline today 3. Encourage patient get out of bed to chair today. Also encouraged continued attempts at prone breathing.
[2021-02-01 07:18] LABS: Alanine Aminotransferase 67 U/L (12-78); Albumin Level 3.6 g/dl (3.5-5.0); Alkaline Phosphatase 47 U/L (38-126); Anion Gap 15.2 mEq/L (5-15); Aspartate Amino Transferase 56 U/L (17-59); Bilirubin,Total 1.1 mg/dl (0.2-1.3); Calcium 9.1 mg/dl (8.4-10.2); Carbon Dioxide 20 mmol/L (22.0-30.0); Chloride 110 mmol/L (98-107); Creatinine Clearance Estimated 295 mL/min (50-200); Globulin 3.6 g/dL (1.3-3.2); Glucose 114 mg/dl (74-100); Sodium 139 mmol/L (136-145); Total Protein,Serum 7.2 g/dl (6.3-8.2)
[2021-02-01 09:03] LABS: Potassium 6.2 mmoL/L (3.5-5.1)
--- NOTE | 2021-02-01 09:08 | XR_ITS ---
PROCEDURE: XR CHEST PORTABLE CLINICAL HISTORY: pnm Covid19 pneumonia COMPARISON: CR CXR CHEST(2 VIEWS-NOT PORTABLE) from 09/08/2012 CR XR CHEST PORTABLE from 01/25/[address] ANGIO CHEST PE PROTOCOL from 01/26/2021 FINDINGS: There are low lung volumes. There is mild prominence of the cardiac silhouette which may in part be due to the poor inspiration. No obvious CHF. The areas of consolidation noted in the right upper, right lower, left upper, and left lower lobe. These findings appear worse compared to the previous exam. The worsening appearance may somewhat be exacerbated by the poor inspiration. No evidence of pneumothorax No acute bony abnormalities. IMPRESSION: Worsening bilateral pneumonia Dictated by: Raj Delgado MD 02/01/2021 10:30 Raj Delgado MD in [facility] 02/01/2021 10:30
[2021-02-01 10:06] LABS: Blood Urea Nitrogen 18 mg/dl (9-20)
--- NOTE | 2021-02-01 13:10 | DIET.NUTRFU ---
Addendum entered by Daniela Casas 02/05/21 10:00: PO intakes 100%, weight stable, normal bowel function. Addendum entered by Daniela Casas 02/03/21 10:28: PO intakes 100%, weight stable, pt had a normal BM yesterday. Original Note: PO intakes 75%, weight stable, no BM since 01/25.
--- NOTE | 2021-02-01 13:32 | HMH.PULMPN ---
Internal Medicine - PN: Subj *Date: 02/01/21 *Time: 13:32 Interval history: No acute respiratory vents overnight. Patient continued to admit improvement in his symptoms. Exam - Constitutional Constitutional:: Present: no acute distress, comfortable - HENMT Exam HENMT: Present: normocephalic, atraumatic - Eye Exam Eyes:: Present: normal appearance both eyes and related structures - Neck Exam Neck:: Present: normal visual inspection - Respiratory Exam Respiratory:: Present: respiratory distress, decreased breath sounds, rales - Cardiovascular Exam Cardiac:: Present: S1, S2 - GI Exam GI:: Present: soft - Skin Exam Skin: Present: warm - Neurological Exam Neurological: Present: alert, awake, normal cognition - Extremities Exam Extremities: Present: no cyanosis, no clubbing, edema Assessment and Plan (1) Viral pneumonia Status: Acute Category: Medical Code(s): J12.9 - Viral pneumonia, unspecified (2) Acute respiratory failure with hypoxia Status: Acute Category: Medical Code(s): J96.01 - Acute respiratory failure with hypoxia (3) COVID-19 Status: Acute Category: Medical Code(s): U07.1 - COVID-19 (4) Pulmonary embolism Status: Suspected Qualifiers: Pulmonary embolism type: other Chronicity: acute Acute cor pulmonale presence: without acute cor pulmonale Qualified Code(s): I26.99 - Other pulmonary embolism without acute cor pulmonale Category: Medical Code(s): I26.99 - Other pulmonary embolism without acute cor pulmonale - Assessment and plan all Dx Assessment and Plan for all problems:: #Acute hypoxic respiratory failure: #COVID-19 pneumonia: 50-year-old male prior smoker and [id number] smoking history, personal history of wheezing and family history of asthma diagnosed with COVID-19 pneumonia present with progressively worsening respiratory symptoms into needing high flow nasal cannula to maintain his saturations at desired level. Patient also admits personal history of provoked DVT previously Chest x-ray admission is bilateral lower lobe primary airspace disease/atelectasis. CT-PE performed, highly concerning for right lower lobe pulmonary embolus, initiated on anticoagulation with Xarelto for at least 3 months. D-dimer also elevated 1.30 CRP at 45.5 and ferritin at 1840 Interval update: Patient respiratory remained relatively stable/slightly improved from prior. He today is at 40% liters 80% FiO2. He admits slight improvement in symptoms. He is due to complete his doxycycline today. Patient again counseled encouraged to follow-up proning protocol. Patient also noted electrolyte derangements including hyperkalemia, managed by primary team Plan: -Continuous telemetry monitoring -Continue high flow nasal cannula oxygen supplementation, wean as tolerated -Xarelto 15 mg twice daily for 21 days and then 20 mg daily for at least 3 months -Continue awake proning protocol. -Advair 250 twice daily. -COntinue Doxycyclinex 5 days -Continue remdesivir dexamethasone and barcitinib for his COVID-19 pneumonia. #Thank you for involving pulmonary in this patient care. We will continue to follow.
--- NOTE | 2021-02-01 18:57 | PC.NURSE ---
Patient is non tele and on high flow oxygen at 40L and 80%. Patient is up with standby assist. No c/o per patient. Patient took a bed side bath. Plan of care is to wean oxygen. Patient up to chair most of the day. Bed in lowest position and phone and call light in reach.
[2021-02-02] VITALS (10 sets, daily range): BP systolic 109–124; BP diastolic 59–66; PULSE 66–103; RESP 14–19; TEMP 36–36.9; O2SAT 90–97; BMI 40.6
--- NOTE | 2021-02-02 03:14 | PC.NURSE ---
No acute changes t/o shift. Pt remains on vapotherm 40L and 80% with O2 saturation 88-91%. Pt denies any pain t/o shift. VSS, call light within reach, will continue to monitor.
--- NOTE | 2021-02-02 07:37 | P.PN_ITS ---
Internal Medicine - PN: Subj *Date: 02/02/21 *Time: 07:37 Interval history: Patient has no complaints. He remains on high flow nasal cannula at 40 L/min with FiO2 of 80%. Exam Vital signs and Labs for Last 24 Hours: Temp Pulse Resp BP Pulse Ox 97.8 F 74 14 109/59 L 91 L 02/02/21 04:00 02/02/21 05:56 02/02/21 04:00 02/02/21 04:00 02/02/21 05:56 Laboratory Results - last 24 hr 02/01/21 06:24: Sodium 139, Potassium 6.2 H* D, Chloride 110 H, Carbon Dioxide 20 L, Anion Gap 15.2 H, BUN 18 D, Creatinine 0.60 L, Estimated Creat Clear 295, Estimated GFR Not Reportable, Est GFR ( Amer) Not Reportable, Glucose 114 H, Calcium 9.1, Total Bilirubin 1.1, AST 56, ALT 67, Alkaline Phosphatase 47, Total Protein 7.2, Albumin 3.6, Globulin 3.6 H, Albumin/Globulin Ratio 1.0 L I & O for Last 24 hours: Intake & Output 01/30/21 01/31/21 02/01/21 02/02/21 11:59 11:59 11:59 11:59 Intake Total 710 / 710 240 / 240 480 / 480 1320 / 1320 Output Total 120 / 120 500 / 500 1900 / 1900 1725 / 1725 Balance 590 / 590 -260 / -260 -1420 / -1420 -405 / -405 Weight 318 lb 9.087 oz 318 lb 9.087 oz 316 lb 316 lb 9 oz - Constitutional no acute distress - *Routine Respiratory Exam Present: distant breath sounds - *Routine Cardiovascular Exam Present: RRR - *Routine Abdominal Exam Present: soft, normoactive bowel sounds. Absent: tenderness Assessment and Plan (1) Viral pneumonia Status: Acute Category: Medical Code(s): J12.9 - Viral pneumonia, unspecified (2) Acute respiratory failure with hypoxia Status: Acute Category: Medical Code(s): J96.01 - Acute respiratory failure with hypoxia (3) COVID-19 Status: Acute Category: Medical Code(s): U07.1 - COVID-19 (4) Pulmonary embolism Status: Suspected Qualifiers: Pulmonary embolism type: other Chronicity: acute Acute cor pulmonale presence: without acute cor pulmonale Qualified Code(s): I26.99 - Other pulmonary embolism without acute cor pulmonale Category: Medical Code(s): I26.99 - Other pulmonary embolism without acute cor pulmonale - Assessment and plan all Dx Assessment and Plan for all problems:: 1. Patient will complete 10 days of Remdesivir, dexamethasone, baricitinib 2. Patient has completed a course of doxycycline 3. Continue prone breathing as tolerated, incentive spirometry, Advair, aer osols
--- NOTE | 2021-02-02 09:21 | P.PN_ITS ---
Internal Medicine - PN: Subj *Date: 02/02/21 *Time: 12:18 Interval history: No acute respiratory events overnight. Patient admits continued improvement in his symptoms. Exam - Constitutional Constitutional:: Present: no acute distress, comfortable - HENMT Exam HENMT: Present: normocephalic - Eye Exam Eyes:: Present: normal appearance both eyes and related structures - Neck Exam Neck:: Present: normal visual inspection - Respiratory Exam Respiratory:: Present: able to speak in complete sentences, respiratory distress, decreased breath sounds, rales - Cardiovascular Exam Cardiac:: Present: S1, S2 - GI Exam GI:: Present: soft, obese - Skin Exam Skin: Present: warm, no rash - Neurological Exam Neurological: Present: alert, awake, normal cognition - Extremities Exam Extremities: Present: no cyanosis, no clubbing, edema Assessment and Plan (1) Viral pneumonia Status: Acute Category: Medical Code(s): J12.9 - Viral pneumonia, unspecified (2) Acute respiratory failure with hypoxia Status: Acute Category: Medical Code(s): J96.01 - Acute respiratory failure with hypoxia (3) COVID-19 Status: Acute Category: Medical Code(s): U07.1 - COVID-19 (4) Pulmonary embolism Status: Suspected Qualifiers: Pulmonary embolism type: other Chronicity: acute Acute cor pulmonale presence: without acute cor pulmonale Qualified Code(s): I26.99 - Other pulmonary embolism without acute cor pulmonale Category: Medical Code(s): I26.99 - Other pulmonary embolism without acute cor pulmonale - Assessment and plan all Dx Assessment and Plan for all problems:: #Acute hypoxic respiratory failure: #COVID-19 pneumonia: 50-year-old male prior smoker and [id number] smoking history, personal history of wheezing and family history of asthma diagnosed with COVID-19 pneumonia present with progressively worsening respiratory symptoms into needing high flow nasal cannula to maintain his saturations at desired level. Patient also admits personal history of provoked DVT previously Chest x-ray admission is bilateral lower lobe primary airspace disease/atelectasis. CT-PE performed, highly concerning for right lower lobe pulmonary embolus, ini tiated on anticoagulation with Xarelto for at least 3 months. D-dimer also elevated 1.30 CRP at 45.5 and ferritin at 1840 Interval update: CXR worsening infiltrates / decreasing lung volumes. Afebrile. Completed 5-day course of doxycycline. Will monitor clinically awaiting repeat sputum cultures and will consider initiating antibiotics if needed. Patient admits sleeping on his belly for at least 12 hours yesterday, patient encouraged to continue sleeping on his belly Plan: -Continuous telemetry monitoring -Continue high flow nasal cannula oxygen supplementation, wean as tolerated, currently on 40 L 80% -Xarelto 15 mg twice daily for 21 days and then 20 mg daily for at least 3 months -Continue awake proning protocol. -Continue Advair 250 twice daily. -Continue remdesivir dexamethasone x 10 days and [id number] days for his COVID-19 pneumonia. Thank you for involving pulmonary in this patient care. Pulmonary services will be unavailable to follow this patient starting 02/03/2021 untill 02/07/2021. We will resume inpatient and pulmonary services starting 02/08/2021. Recommend transferring the patient to higher level of care if needing advanced pulmonary critical care services.
--- NOTE | 2021-02-02 16:19 | PC.NURSE ---
Patient is being monitored by telemetry and is on vapotherm at 40L and 80%. Patient is standby assist, patient gets fatigued very easily. Plan of care is to wean oxygen. Patient up to chair. Patient's bowels move today, used bedside commode. Bed in lowest position and phone and call light in reach. Will continue to monitor.
[2021-02-03] VITALS (10 sets, daily range): BP systolic 96–132; BP diastolic 58–76; PULSE 64–102; RESP 16–24; TEMP 36.6–37; O2SAT 90–97; BMI 40.6
--- NOTE | 2021-02-03 03:23 | PC.NURSE ---
No acute changes t/o shift. Pt remains on vapotherm 30L and 70% with O2 saturation >90%. Pt has laid prone and on his right side for most of the shift independently. VSS, call light within reach, will continue to monitor.
--- NOTE | 2021-02-03 07:05 | HMH.ACPN2 ---
Internal Medicine - PN: Subj *Date: 02/03/21 *Time: 07:05 Interval history: No acute events. Patient reports clearing a lot of mucus from his respiratory system over the last 24 hours. FiO2 of his HFNC was able to be weaned to 70% yesterday and this morning O2 sats remained in the high 90s. Exam Vital signs and Labs for Last 24 Hours: Temp Pulse Resp BP Pulse Ox 97.9 F 79 16 124/62 91 L 02/03/21 04:00 02/03/21 06:56 02/03/21 04:00 02/03/21 04:00 02/03/21 06:56 I & O for Last 24 hours: Intake & Output 01/31/21 02/01/21 02/02/21 02/03/21 11:59 11:59 11:59 11:59 Intake Total 240 / 240 480 / 480 1560 / 1560 360 / 360 Output Total 500 / 500 1900 / 1900 1999 / 1999 675 / 675 Balance -260 / -260 -1420 / -1420 -440 / -440 -315 / -315 Weight 318 lb 9.087 oz 316 lb 316 lb 9 oz 316 lb 8.988 oz Microbiology Reports for the Last 24 Hours: Microbiology 02/02/21 11:35 Sputum - Expectorated Sputum Gram Stain - Final Narrative: He looks well. Breath sounds are distant but clear. Heart has a regular rate and rhythm. Assessment and Plan (1) Viral pneumonia Status: Acute Category: Medical Code(s): J12.9 - Viral pneumonia, unspecified (2) Acute respiratory failure with hypoxia Status: Acute Category: Medical Code(s): J96.01 - Acute respiratory failure with hypoxia (3) COVID-19 Status: Acute Category: Medical Code(s): U07.1 - COVID-19 (4) Pulmonary embolism Status: Suspected Qualifiers: Pulmonary embolism type: other Chronicity: acute Acute cor pulmonale presence: without acute cor pulmonale Qualified Code(s): I26.99 - Other pulmonary embolism without acute cor pulmonale Category: Medical Code(s): I26.99 - Other pulmonary embolism without acute cor pulmonale - Assessment and plan all Dx Assessment and Plan for all problems:: No change in medical management. Wean HFNC as tolerated to keep sats above 90%
[2021-02-03 09:04] LABS: Chloride 104 mmol/L (98-107); Potassium 3.8 mmoL/L (3.5-5.1); Sodium 137 mmol/L (136-145)
[2021-02-03 09:07] LABS: Alanine Aminotransferase 118 U/L (12-78); Albumin Level 3.5 g/dl (3.5-5.0); Alkaline Phosphatase 67 U/L (38-126); Anion Gap 12.8 mEq/L (5-15); Aspartate Amino Transferase 60 U/L (17-59); Bilirubin,Total 0.7 mg/dl (0.2-1.3); Blood Urea Nitrogen 15 mg/dl (9-20); Carbon Dioxide 24 mmol/L (22.0-30.0); Creatinine Clearance Estimated 296 mL/min (50-200); Estimated Glomerular Filt Rate 142 ml/min (>60); GFR (African American) 172 ML/MIN (>60); Globulin 3.4 g/dL (1.3-3.2); Total Protein,Serum 6.9 g/dl (6.3-8.2)
[2021-02-03 09:08] LABS: Calcium 8.8 mg/dl (8.4-10.2); Glucose 143 mg/dl (74-100)
--- NOTE | 2021-02-03 09:52 | PC.NURSE ---
assiting with charting vitals and srna checks at this time.
--- NOTE | 2021-02-03 18:16 | PC.NURSE ---
NO ACUTE CHANGES THIS SHIFT, STILL REQUIRES VAPOTHERM FOR O2 SUPPORT WITH SETTINGS 40 LPM @ 60%.
--- NOTE | 2021-02-03 18:22 | PC.NURSE ---
HE IS AOX4, ABLE TO MAKE NEEDS KNOWN TO STAFF, CONTINUE ON VAPOTHERM FOR O2 SUPPORT. VSS T/O SHIFT. NO ACUTE CHANGES.
[2021-02-04] VITALS (9 sets, daily range): BP systolic 114–149; BP diastolic 64–90; PULSE 70–92; RESP 17–20; TEMP 36.6–36.9; O2SAT 90–98; BMI 40.1
--- NOTE | 2021-02-04 04:15 | PC.NURSE ---
Patient is A&O x4. He has rested well this shift. Has had no complaints voiced to this RN. VSS. Vapotherm remains at 40L/55% FIO2. Call light within reach, will continue to monitor.
[2021-02-04 06:54] LABS: Chloride 104 mmol/L (98-107); Potassium 4.5 mmoL/L (3.5-5.1); Sodium 137 mmol/L (136-145)
[2021-02-04 06:57] LABS: Alanine Aminotransferase 126 U/L (12-78); Albumin Level 3.4 g/dl (3.5-5.0); Albumin/Globulin Ratio 1.1 (1.1-1.8); Alkaline Phosphatase 67 U/L (38-126); Anion Gap 10.5 mEq/L (5-15); Aspartate Amino Transferase 54 U/L (17-59); Bilirubin,Total 0.6 mg/dl (0.2-1.3); Blood Urea Nitrogen 14 mg/dl (9-20); Calcium 8.6 mg/dl (8.4-10.2); Carbon Dioxide 27 mmol/L (22.0-30.0); Creatinine Clearance Estimated 251 mL/min (50-200); Estimated Glomerular Filt Rate 119 ml/min (>60); GFR (African American) 144 ML/MIN (>60); Globulin 3.2 g/dL (1.3-3.2); Glucose 100 mg/dl (74-100); Total Protein,Serum 6.6 g/dl (6.3-8.2)
--- NOTE | 2021-02-04 07:27 | HMH.ACPN2 ---
Internal Medicine - PN: Subj *Date: 02/04/21 *Time: 07:27 Interval history: No acute events in the last 24 hours. Patient notes improvement. He is coughing up alicea and bloody sputum. FiO2 is down to 55% Exam Vital signs and Labs for Last 24 Hours: Temp Pulse Resp BP Pulse Ox 98.3 F 85 18 114/71 91 L 02/04/21 04:00 02/04/21 06:44 02/04/21 04:00 02/04/21 04:00 02/04/21 06:44 Laboratory Results - last 24 hr 02/03/21 08:45: Sodium 137, Potassium 3.8 D, Chloride 104, Carbon Dioxide 24, Anion Gap 12.8, BUN 15, Creatinine 0.60 L, Estimated Creat Clear 296, Estimated GFR 142, Est GFR ( Amer) 172, Glucose 143 H, Calcium 8.8, Total Bilirubin 0.7, AST 60 H, ALT 118 H D, Alkaline Phosphatase 67, Total Protein 6.9, Albumin 3.5, Globulin 3.4 H, Albumin/Globulin Ratio 1.0 L 02/04/21 06:29: Sodium 137, Potassium 4.5, Chloride 104, Carbon Dioxide 27, Anion Gap 10.5, BUN 14, Creatinine 0.70, Estimated Creat Clear 251, Estimated GFR 119, Est GFR ( Amer) 144, Glucose 100 D, Calcium 8.6, Total Bilirubin 0.6, AST 54, ALT 126 H, Alkaline Phosphatase 67, Total Protein 6.6, Albumin 3.4 L, Globulin 3.2, Albumin/Globulin Ratio 1.1 I & O for Last 24 hours: Intake & Output 02/01/21 02/02/21 02/03/21 02/04/21 11:59 11:59 11:59 11:59 Intake Total 480 / 480 1560 / 1560 360 / 360 480 / 480 Output Total 1900 / 1900 1999 / 1999 675 / 675 350 / 350 Balance -1420 / -1420 -440 / -440 -315 / -315 130 / 130 Weight 316 lb 316 lb 9 oz 316 lb 8.988 oz 313 lb Microbiology Reports for the Last 24 Hours: Microbiology 02/02/21 11:35 Sputum - Expectorated Sputum Gram Stain - Final 02/02/21 11:35 Sputum - Expectorated Sputum Sputum Culture - Preliminary - Constitutional no acute distress - *Routine Respiratory Exam Present: CTA bilaterally - *Routine Cardiovascular Exam Present: RRR Assessment and Plan (1) Viral pneumonia Status: Acute Category: Medical Code(s): J12.9 - Viral pneumonia, unspecified (2) Acute respiratory failure with hypoxia Status: Acute Category: Medical Code(s): J96.01 - Acute respiratory failure with hypoxia (3) COVID-19 Status: Acute Category: Medical Code(s): U07.1 - COVID-19 (4) Pulmonary embolism Status: Suspected Qualifiers: Pulmonary embolism type: other Chronicity: acute Acute cor pulmonale presence: without acute cor pulmonale Qualified Code(s): I26.99 - Other pulmonary embolism without acute cor pulmonale Category: Medical Code(s): I26.99 - Other pulmonary embolism without acute cor pulmonale - Assessment and plan all Dx Assessment and Plan for all problems:: No change in plan of care. Continue to wean FiO2.
--- NOTE | 2021-02-04 07:34 | SW/DCPLANNER ---
PATIENT REMAINS IN THE ACUTE HOSPITAL BUT IS IMPROVING EACH DAY..PATIENT PRESENTED INTO THE ACUTE HOSPITAL ON 01/25 WITH A DIAGNOSIS OF COVID PNEUMONIA.. ACCORDING TO DR CORONADO AFTER MAKING ROUNDS THIS AM, HE STATED HE FELT MR CAMPBELL MAY BE ABLE TO DISCHARGE IN THE NEXT FEW DAYS PENDING NO SETBACKS...IF ANY HOME CARE IS NECESSARY IT WILL BE SET UP AT TIME OF DISPOSITION...
[2021-02-05] VITALS (8 sets, daily range): BP systolic 116–130; BP diastolic 65–67; PULSE 74–114; RESP 20–24; TEMP 36.6–36.7; O2SAT 81–95; BMI 40.1
--- NOTE | 2021-02-05 06:19 | PC.NURSE ---
Patient is A&Ox4. He has rested well this shift. Lung sounds diminished. No acute changes over night. VSS, call light within reach, will continue to monitor.
--- NOTE | 2021-02-05 07:25 | HMH.ACPN2 ---
Internal Medicine - PN: Subj *Date: 02/05/21 *Time: 07:25 Interval history: Patient is remained stable. Patient has been weaned to simple nasal cannula 10 L/min. O2 sats are in the mid 90s Exam Vital signs and Labs for Last 24 Hours: Temp Pulse Resp BP Pulse Ox 97.9 F 74 24 116/65 95 02/05/21 04:00 02/05/21 04:00 02/05/21 04:00 02/05/21 04:00 02/05/21 05:50 I & O for Last 24 hours: Intake & Output 02/02/21 02/03/21 02/04/21 02/05/21 11:59 11:59 11:59 11:59 Intake Total 1560 / 1560 360 / 360 720 / 720 600 / 600 Output Total 1999 675 / 675 350 / 350 2575 / 2575 Balance -440 / -440 -315 / -315 370 / 370 -1974 / -1974 Weight 316 lb 9 oz 316 lb 8.988 oz 313 lb 312 lb 15.985 oz Microbiology Reports for the Last 24 Hours: Microbiology 02/02/21 11:35 Sputum - Expectorated Sputum Gram Stain - Final 02/02/21 11:35 Sputum - Expectorated Sputum Sputum Culture - Preliminary - Constitutional no acute distress Assessment and Plan (1) Viral pneumonia Status: Acute Category: Medical Code(s): J12.9 - Viral pneumonia, unspecified (2) Acute respiratory failure with hypoxia Status: Acute Category: Medical Code(s): J96.01 - Acute respiratory failure with hypoxia (3) COVID-19 Status: Acute Category: Medical Code(s): U07.1 - COVID-19 (4) Pulmonary embolism Status: Suspected Qualifiers: Pulmonary embolism type: other Chronicity: acute Acute cor pulmonale presence: without acute cor pulmonale Qualified Code(s): I26.99 - Other pulmonary embolism without acute cor pulmonale Category: Medical Code(s): I26.99 - Other pulmonary embolism without acute cor pulmonale - Assessment and plan all Dx Assessment and Plan for all problems:: Continue to wean O2 further. Patient may be discharged this afternoon if O2 sats remained stable. Patient will need oxygen concentrator at home.
--- NOTE | 2021-02-05 14:18 | SW/DCPLANNER ---
RECEIVED REFERRAL FOR HOME 02 FOR THIS PATIENT... PATIENT IS DISCHARGING HOME AND WILL NEED HOME 02, THIS WAS SET UP WITH [facility]. A PORTABLE TANK WILL BE DELIVERED PRIOR TO HIM LEAVING THE HOSPITAL...
--- NOTE | 2021-02-06 09:18 | HMH.DCSUM ---
General - General Admission date:: 01/25/21 Discharge date: 02/06/21 HPI HPI: 50-year-old male presented to the emergency department with shortness of breath with cough and O2 sats in the 80s. Patient initially came down with URI symptoms on January 16. Patient was tested few days later through his employer and tested positive for COVID-19. Patient has been quarantining at home and was monitoring with home oximetry. Patient denies shortness of breath at rest but reports with coughing spells he became dyspneic. O2 sats began to drop into the 80s and reached as low as 80%. At this point patient decided to seek treatment in the ER. In the ER patient was hypoxic and responded to application of high flow nasal cannula which is currently maxed out at 40 L/min and 100% FiO2. Patient reports he feels comfortable this morning. He has not been vaccinated against COVID-19. Hospital Course Hospital Course: Patient was admitted for respiratory failure from COVID-19 pneumonia. Upon admission patient was started on Remdesivir, dexamethasone, baricitinib. Due to the need for HFNC pulmonology was consulted. Dr. Stewart saw the patient daily and added doxycycline and Advair to the patient's regimen. Patient was able to remain on high flow nasal cannula throughout the admission. However attempts to wean the patient also proved quite difficult and for the majority of the hospitalization patient remained on 40 L a minute with an FiO2 of 80%. 72 hours prior to discharge patient began to require less supplemental oxygen and was weaned. On the day of discharge patient was satting in the low 90s on 6 L. Patient was discharged home. Patient will follow up in my office on February 09. Patient will continue Advair. Patient has been advised to get a Covid vaccine in 90 days. On initial evaluation to the emergency department patient had a CT scan of the chest which did raise some concern over the possibility of a pulmonary embolism. Patient was started on Xarelto 15 mg twice daily. This will be transition to 20 mg daily after 3 weeks of therapy. Objective Vital signs: Temp Pulse Resp BP Pulse Ox 98.1 F 114 H 20 130/66 94 L 02/05/21 12:00 02/05/21 12:00 02/05/21 12:00 02/05/21 12:00 02/05/21 14:26 no acute distress - *Routine Respiratory Exam Present: distant breath sounds - *Routine Cardiovascular Exam Present: RRR Results Labs on day of discharge: Preliminary micro results at discharge 02/02/21 11:35 Sputum Culture - Preliminary Sputum - Expectorated Sputum DS: Diagnosis - Discharge Diagnosis (1) Viral pneumonia Status: Acute (2) Acute respiratory failure with hypoxia Status: Acute (3) COVID-19 Status: Acute (4) Pulmonary embolism Status: Suspected Discharge Plan - Patient Discharge Instructions ACTIVITY: Continue current activity DIET: continue same diet Patient Instructions: DI for Pneumonia -- Adult, DI for Respiratory Failure, DI for COVID-19 (Suspected or Confirmed ), Coronavirus Disease 2019, How to Care for Someone with COVID-19, COVID-19: Protecting Yourself When You're at High Risk, Nutrition and Hydration: [employer] in the Fight Against COVID-19 - Follow up Plan Follow up with: Pérez Williamson MD [Primary Care Provider] - 02/09/21 11:15 am Disposition: Home, Self-Care Condition at discharge:: Improved Home Medications: Home Medications Medication Instructions Recorded Confirmed Type Fluticasone/Salmeterol [Advair 1 puffs IH BIDRT #1 each 02/05/21 Rx 250/50mcg Diskus] Rivaroxaban [Xarelto 15mg tablet] 15 mg PO BIDWMEAL #20 tab 02/05/21 Rx Prescriptions/Medication Reconciliation: New Fluticasone/Salmeterol [Advair 250/50mcg Diskus] 1 puffs IH BIDRT #1 each Rivaroxaban [Xarelto 15mg tablet] 15 mg PO BIDWMEAL #20 tab - Problem Reconciliation Problems Reviewed?: Yes
== END 2021-02-05 15:15 | disposition home or self-care (01) | DRG 177 ==
LOC: ER 18:28 → ICU 21:37 → 2ND 01-29 13:42
PROVIDERS: Internal Medicine Pulmonary Disease; Admitting Provider Family Medicine; Emergency Provider Family Medicine; PCP Family Medicine; Visit Provider Family Medicine
DX: U07.1 COVID-19 (principal); J12.82 Pneumonia due to coronavirus disease 2019; J96.01 Acute respiratory failure with hypoxia; I26.99 Other pulmonary embolism without acute cor pulmonale; Z87.891 Personal history of nicotine dependence; Z86.73 Personal history of transient ischemic attack (TIA), and cerebral infarction without residual deficits; Z86.718 Personal history of other venous thrombosis and embolism
CPT/HCPCS: 36415; 71045; 71275; 80053; 82728; 82803; 83605; 83880; 84145; 84484; 85007; 85025; 85378; 86140; 87040; 87070; 87077; 87186; 87205; 93005; 94640; 94760; 94761; 99284; C9803; Q9967; U0003; U0005

== ENCOUNTER → 2021-03-22 16:35 | Outpatient (CLI) | payer BC, SELFPAY | PROVIDERS: PCP Family Medicine; Visit Provider Family Medicine | DX: G47.33 Obstructive sleep apnea (adult) (pediatric) (principal) | CPT/HCPCS: G0399 ==

== ENCOUNTER → 2022-01-18 16:16 | Outpatient (CLI) | payer BC, SELFPAY ==
--- NOTE | 2022-01-18 16:21 | CA_ITS ---
FINAL REPORT TECHNIQUE: Compression alicea scale and Doppler evaluation CLINICAL HISTORY: .DVT 10 years ago, chronic edema, Hx-vein stripping, superficial varicosities. Negative fot DVT FINDINGS: Femoral and popliteal veins show normal compressibility and flow. Visualized portion of the calf veins are patent by Doppler exam. IMPRESSION: No evidence of right lower extremity deep venous thrombosis Reviewed, Interpreted and Dictated by Fidencio Morales MD Transcribed by Dania Wilson Authenticated and . [facility]
== END ==
PROVIDERS: PCP Family Medicine; Visit Provider Family Medicine
DX: M79.604 Pain in right leg (principal)
CPT/HCPCS: 93971

== ENCOUNTER 2023-07-10 10:49 | Outpatient (CLI) | payer BC, SELFPAY ==
--- NOTE | 2023-07-10 10:54 | XR_ITS ---
FINAL REPORT CLINICAL HISTORY: Foot Pain while walking at work COMPARISON: None FINDINGS: LEFT FOOT: Three views of the left foot were obtained. There is no acute fracture or dislocation. The joint spaces are intact. Calcaneal spurs are present. There is no soft tissue abnormality. IMPRESSION: No acute bony abnormality. Calcaneal spurs are present. Reviewed, Interpreted and Dictated by Masood Molina III, MD Transcribed by Consuelo Harding Authenticated and [facility]
--- NOTE | 2023-07-10 10:54 | XR_ITS ---
FINAL REPORT CLINICAL HISTORY: Foot Pain from walking at work COMPARISON: None FINDINGS: RIGHT FOOT: Three views of the right foot were obtained. There is no acute fracture or dislocation. The joint spaces are intact. Calcaneal spurs are present. There is no soft tissue abnormality. IMPRESSION: No acute bony abnormality. Calcaneal spurs are present. Reviewed, Interpreted and Dictated by Masood Molina III, MD Transcribed by Consuelo Harding Authenticated and [facility]
== END 2023-07-10 23:59 ==
LOC: RAD 10:50
PROVIDERS: PCP Family Medicine; Visit Provider Podiatrist
DX: M79.672 Pain in left foot (principal); M79.671 Pain in right foot
CPT/HCPCS: 73630